=== PATIENT | female | born 1975 ===

== ENCOUNTER → 2016-10-30 | Outpatient (CLI) | payer MEDICAID ==
--- NOTE | 2016-10-30 13:24 | DX ---
Left hand, 3 views. HISTORY: Left hand pain for 6 months at metacarpal phalangeal joint. FINDINGS: Normal mineralization and alignment. No evidence for acute fracture or dislocation. No sign ificant joint narrowing, periarticular erosion, periarticular spurring. IMPRESSION: Unremarkable left hand.
== END ==
LOC: FIMAGING 12:11
PROVIDERS: ATTEND Family Medicine
DX: M79.642 Pain in left hand (principal)

== ENCOUNTER → 2017-07-06 | Outpatient (CLI) | payer MEDICAID | LOC: FIMAGING 16:18 | PROVIDERS: ATTEND Registered Nurse | DX: Z12.31 Encounter for screening mammogram for malignant neoplasm of breast (principal); Z80.3 Family history of malignant neoplasm of breast | CPT/HCPCS: G0202 ==